=== PATIENT | female | born 1975 | race Two or more races ===

== ENCOUNTER 2025-04-04 00:53 | Emergency (ER) | payer OTHER ==
[~2025-04-04] VITALS: Ht 160 cm; Wt 65.8 kg
[2025-04-04] MEDS ORDERED: 0.9 % SODIUM CHLORIDE 1,000 ML IV STA (04:43)
[2025-04-04] MEDS ORDERED: KETOROLAC TROMETHAMINE 30 MG VIAL IV STA (04:44)
[2025-04-04] MEDS ORDERED: TRAMADOL HCL 50 MG TABLET PO STA (04:45)
[2025-04-04] MEDS ORDERED: KETOROLAC TROMETHAMINE 30 MG VIAL ONE (04:51)
[2025-04-04 05:30] LABS: BASO % 0.7 % (0.1-1.2); EOS # 0.22 (0.04-0.54); EOS % 2.9 % (0.7-7.0); HEMATOCRIT 38.6 % (34.1-44.9); HEMOGLOBIN 12.3 g/dL (11.2-15.7); LYMPH # 3.06 (1.18-3.74); LYMPH % 40.1 % (19.3-53.1); MEAN CORPUSCULAR HEMOGLOBIN 26.2 pg (25.6-32.2); MONO # 0.88 (0.24-0.82); MONO % 11.5 % (4.7-12.5); NEUT # 3.38 (1.56-6.13); NEUT % 44.3 % (34.0-71.1); PLATELET COUNT 317 K/uL (163-369); RED CELL DISTRIBUTION WIDTH 14.7 % (11.6-14.4)
[2025-04-04 05:34] LABS: INR < 0.93; PARTIAL THROMBOPLASTIN TIME 23.7 SECONDS (22.0-34.0); PROTHROMBIN TIME 9.7 SECONDS (9.0-11.5)
[2025-04-04 05:38] LABS: CALCIUM 8.7 mg/dL (8.5-10.1); CREATININE SERUM 0.8 mg/dL (0.55-1.02); GFR 76.88; POTASSIUM 3.81 mEq/L (3.5-5.1)
[2025-04-04 05:41] LABS: PH,URINE 5.5 (5.0-8.0); URINE APPEARANCE Cloudy; URINE BILIRRUBIN Negative (NEGATIVE); URINE BLOOD Negative; URINE COLOR Yellow; URINE GLUCOSE Negative (NEGATIVE); URINE KETONE Trace (NEGATIVE); URINE LEUKOCYTE Negative; URINE NITRATE Negative; URINE PROTEIN Negative (NEGATIVE)
[2025-04-04 05:45] LABS: URINE BACTERIA 7943.4 uL (0.0-1933); URINE EPITHELIAL CELLS 64.2 uL (0.0-38.8); URINE RBC 8.2 uL (0.0-20.8); URINE WBC 113.8 uL (0.0-23.2)
== END 2025-04-04 06:32 | disposition home or self-care (01) ==
LOC: ER 01:38
DX: D25.9 Leiomyoma of uterus, unspecified (principal); R10.2 Pelvic and perineal pain